=== PATIENT | male | born 1945 | race Two or more races ===

== ENCOUNTER 2018-03-30 15:40 | Inpatient (IN) | payer MEDICARE, MEDICAID ==
[~2018-03-30] VITALS: Ht 170.2 cm; Wt 64.0 kg
--- NOTE | 2018-03-30 15:56 | NUR ---
pt presented with remsa with urinary frequency and urgency x 3 days. pt a&ox4. pt placed in room and placed on bp and cont. pulse oximeter. assessment completed. call light in reach.
[2018-03-30 16:18] LABS: MEAN CORPUSCULAR HEMOGLOBIN 33.3 pg (27.5-34.5); MEAN CORPUSCULAR HGB CONC 34.1 g/dL (33.2-36.2); MEAN CORPUSCULAR VOLUME 97.6 fL (81-97); PLATELET COUNT 165 x10^3/uL (130-400); RED BLOOD COUNT 4.66 x10^6/uL (4.38-5.82); RED CELL DISTRIBUTION WIDTH 13.9 % (9.4-14.8)
[2018-03-30 16:25] LABS: ALBUMIN 3.1 g/dL (3.4-5.0); ANION GAP 8 mmol/L (5-15); CALCIUM 9.2 mg/dL (8.5-10.1); CHLORIDE 101 mmol/L (98-107); CREATININE 3.69 mg/dL (0.7-1.3)
[2018-03-30] MEDS ORDERED: SODIUM CHLORIDE 0.9% 1,000 ML IV ONE ×2 (16:32→19:24)
[2018-03-30 16:36] LABS: MD YES
[2018-03-30 16:39] LABS: BANDS%(MANUAL) 8 % (0-7); LYMPH#(MANUAL) 1.05 x10^3/uL (1-3.4); LYMPHS% (MANUAL) 6 % (22-44); MONOS#(MANUAL) 0.88 x10^3/uL (0.3-2.7); MONOS% (MANUAL) 5 % (2-9); SEG#(MANUAL) 14.18 x10^3/uL (1.8-6.8); SEGS% (MANUAL) 81 % (42-75)
[2018-03-30 16:41] LABS: <PLATELET ESTIMATE> ADEQUATE; <PLT MORPHOLOGY> NORMAL PLT MORPH; PMNS WITH VACUOLES 1+
--- NOTE | 2018-03-30 16:48 | NUR ---
pt bladder scanned and bladder scan 960 mls. denton placed and 1200 mls out. urine sent to lab.
--- NOTE | 2018-03-30 16:58 | NUR ---
ultrasound at bedside.
[2018-03-30] MEDS ORDERED: SODIUM CHLORIDE 0.9% 1,000ML IVBOLUS ONE (17:00)
[2018-03-30] MEDS ORDERED: SODIUM CHLORIDE FLUSH 10ML SYR IVF ONE (17:00)
[2018-03-30 17:20] LABS: CULTURE INDICATED? YES; MICROSCOPIC INDICATED
--- NOTE | 2018-03-30 17:22 | NUR ---
BLOOD NOTICED AT TIP OF PENIS, MD AWARE. BLOOD IN URINE.
--- NOTE | 2018-03-30 18:24 | NUR ---
2 LITERS OF BURGUNDY URINE EMPTIED OUT OF TAMAYO
[2018-03-30] MEDS ORDERED: CEFTRIAXONE PMX 1GM/50ML 50 ML IVPB ONE (18:30)
[2018-03-30] MEDS ORDERED: TAMS-11 PO (18:39)
--- NOTE | 2018-03-30 18:48 | NUR ---
REPORT GIVEN TO RAFITA RO.
[2018-03-30] MEDS ORDERED: CEFTRIAXONE PMX 1GM/50ML 50 ML ONE (18:59)
--- NOTE | 2018-03-30 19:01 | NUR ---
[facility] RO: REPORT OF PT FROM JAYJAY ELLER.
--- NOTE | 2018-03-30 19:03 | NUR ---
BLOOD CULTURES DRAWN X 2 AND ANTIBIOTICS HUNG PER MD ORDER
[2018-03-30] MEDS: SODIUM CHLORIDE 0.9% 1,000 ML IV SCH (19:22)
[2018-03-30] MEDS ORDERED: ONDANSETRON 2MG/ML, 2ML IVPush PRN (19:30)
[2018-03-30] MEDS ORDERED: GUAIFENESIN/COD200MG-20MG/10ML LIQUID PO PRN (19:30)
[2018-03-30] MEDS ORDERED: hydrALAzine 20 MG/ML, 1ML IVPush PRN (19:30)
[2018-03-30] MEDS ORDERED: DOCUSATE 100 MG CAPSULE PO PRN (19:30)
[2018-03-30] MEDS ORDERED: SODIUM CHLORIDE FLUSH 10ML SYR IVF PRN (19:30)
--- NOTE | 2018-03-30 19:31 | NUR ---
PT RESTING IN BED AT THIS TIME. PT INFORMED HOLDING OFF ON FOOD UNTIL ALL TEST ARE COMPLETED. PT REPOSITIONED IN BED. PT REQUESTING SOFT FOODS DUE TO HIS BAD TEETH. PT CONNECTED TO MONITORS AND CALL LIGHT IN REACH. AWAITING FURTHER ORDERS.
--- NOTE | 2018-03-30 20:03 | NUR ---
PT MEDICATED PER EMAR.
--- NOTE | 2018-03-30 20:16 | NUR ---
Discussion with provider regarding high procalcitonin. Provider at this time would like to stay on monotherapy. No other interventions at this time.
[2018-03-31 02:05] VITALS: BP 155/93
[2018-03-31] MEDS: SODIUM CHLORIDE 0.9% 1,000 ML IV SCH (04:41)
[2018-03-31] MEDS: ACETAMINOPHEN 325 MG TABLET PO PRN ×2 (04:51→11:27)
[2018-03-31 05:49] LABS: BASOPHILS % (AUTO) 0 % (0-1); EOSINOPHILS % (AUTO) 0 % (1-7); LYMPHOCYTES # (AUTO) 0.48 x10^3/uL (1-3.4); LYMPHOCYTES % (AUTO) 3 % (22-44); MD NO; MEAN CORPUSCULAR HEMOGLOBIN 33.3 pg (27.5-34.5); MEAN CORPUSCULAR HGB CONC 33.7 g/dL (33.2-36.2); MEAN CORPUSCULAR VOLUME 98.8 fL (81-97); MEAN PLATELET VOLUME 9.3 fL (7.4-10.4); MONOCYTES # (AUTO) 1.02 x10^3/uL (0.2-0.8); MONOCYTES % (AUTO) 7 % (2-9); NEUTROPHILS # (AUTO) 13.49 x10^3/uL (1.8-6.8); NEUTROPHILS % (AUTO) 90 % (42-75); PLATELET COUNT 149 x10^3/uL (130-400); RED BLOOD COUNT 4.48 x10^6/uL (4.38-5.82); RED CELL DISTRIBUTION WIDTH 13.9 % (9.4-14.8)
[2018-03-31 05:58] LABS: ANION GAP 11 mmol/L (5-15); CALCIUM 8.3 mg/dL (8.5-10.1); CHLORIDE 107 mmol/L (98-107)
[2018-03-31 05:59] LABS: CREATININE 2.36 mg/dL (0.7-1.3)
[2018-03-31 08:38] VITALS: BP 126/60
[2018-03-31] MEDS: TAMSULOSIN 0.4 MG CAP.ER.24H PO SCH (08:56)
[2018-03-31] MEDS: PIPERACILLIN/TAZO/PMX 3.375GM 50 ML IV SCH ×2 (10:56→18:32)
[2018-03-31 14:00] VITALS: BP 139/85
[2018-03-31 18:47] VITALS: BP 142/93
[2018-03-31] MEDS ORDERED: CEFTRIAXONE PMX 1GM/50ML 50 ML IV SCH (19:00)
[2018-04-01 01:17] VITALS: BP 131/79
[2018-04-01] MEDS: PIPERACILLIN/TAZO/PMX 3.375GM 50 ML IV SCH ×4 (02:28→23:08)
[2018-04-01 06:56] VITALS: BP 136/82
[2018-04-01] MEDS: HEPARIN 5,000 UNITS/ML, 1ML SQ SCH ×2 (08:05→16:57)
[2018-04-01] MEDS: TAMSULOSIN 0.4 MG CAP.ER.24H PO SCH (08:05)
[2018-04-01 08:07] LABS: BASOPHILS # (AUTO) 0.02 x10^3/uL (0-0.1); BASOPHILS % (AUTO) 0 % (0-1); EOSINOPHILS # (AUTO) 0.08 x10^3/uL (0-0.4); EOSINOPHILS % (AUTO) 1 % (1-7); LYMPHOCYTES # (AUTO) 0.78 x10^3/uL (1-3.4); LYMPHOCYTES % (AUTO) 6 % (22-44); MD NO; MEAN CORPUSCULAR HEMOGLOBIN 32.4 pg (27.5-34.5); MEAN CORPUSCULAR HGB CONC 33.3 g/dL (33.2-36.2); MEAN CORPUSCULAR VOLUME 97.5 fL (81-97); MEAN PLATELET VOLUME 8.8 fL (7.4-10.4); MONOCYTES # (AUTO) 0.82 x10^3/uL (0.2-0.8); MONOCYTES % (AUTO) 7 % (2-9); NEUTROPHILS # (AUTO) 10.74 x10^3/uL (1.8-6.8); NEUTROPHILS % (AUTO) 86 % (42-75); PLATELET COUNT 163 x10^3/uL (130-400); RED BLOOD COUNT 4.43 x10^6/uL (4.38-5.82); RED CELL DISTRIBUTION WIDTH 13.8 % (9.4-14.8)
[2018-04-01 08:20] LABS: ALANINE AMINOTRANSFERASE 37 U/L (12-78); ALBUMIN 2.4 g/dL (3.4-5.0); ANION GAP 11 mmol/L (5-15); CHLORIDE 103 mmol/L (98-107); CREATININE 1.37 mg/dL (0.7-1.3)
[2018-04-01 08:22] LABS: ALKALINE PHOSPHATASE 97 U/L (45-117); BILIRUBIN,TOTAL 1.8 mg/dL (0.2-1.0); TOTAL PROTEIN 7.2 g/dL (6.4-8.2)
[2018-04-01] MEDS: SODIUM CHLORIDE 0.9% 1,000 ML IV SCH (10:36)
[2018-04-01] MEDS ORDERED: PIPERACILLIN/TAZO/PMX 3.375GM 50 ML IV SCH (12:30)
[2018-04-01 13:28] VITALS: BP 120/78
[2018-04-01] MEDS: ACETAMINOPHEN 325 MG TABLET PO PRN (13:41)
[2018-04-01 20:19] VITALS: BP 132/78
[2018-04-02 01:55] VITALS: BP 143/87
[2018-04-02] MEDS: SODIUM CHLORIDE 0.9% 1,000 ML IV SCH ×2 (04:01→15:25)
[2018-04-02] MEDS: PIPERACILLIN/TAZO/PMX 3.375GM 50 ML IV SCH ×4 (04:12→22:09)
[2018-04-02] MEDS: HEPARIN 5,000 UNITS/ML, 1ML SQ SCH ×3 (04:13→22:09)
[2018-04-02 04:57] LABS: BASOPHILS # (AUTO) 0.09 x10^3/uL (0-0.1); BASOPHILS % (AUTO) 1 % (0-1); EOSINOPHILS # (AUTO) 0.16 x10^3/uL (0-0.4); EOSINOPHILS % (AUTO) 2 % (1-7); LYMPHOCYTES # (AUTO) 0.98 x10^3/uL (1-3.4); LYMPHOCYTES % (AUTO) 11 % (22-44); MD NO; MEAN CORPUSCULAR HEMOGLOBIN 32.7 pg (27.5-34.5); MEAN CORPUSCULAR HGB CONC 33.5 g/dL (33.2-36.2); MEAN CORPUSCULAR VOLUME 97.7 fL (81-97); MEAN PLATELET VOLUME 8.8 fL (7.4-10.4); MONOCYTES % (AUTO) 11 % (2-9); NEUTROPHILS # (AUTO) 6.96 x10^3/uL (1.8-6.8); NEUTROPHILS % (AUTO) 76 % (42-75); PLATELET COUNT 163 x10^3/uL (130-400); RED BLOOD COUNT 4.07 x10^6/uL (4.38-5.82); RED CELL DISTRIBUTION WIDTH 13.9 % (9.4-14.8)
[2018-04-02 05:08] LABS: ALBUMIN 2.2 g/dL (3.4-5.0); ANION GAP 7 mmol/L (5-15); CALCIUM 7.4 mg/dL (8.5-10.1); CHLORIDE 105 mmol/L (98-107)
[2018-04-02 05:13] LABS: ALANINE AMINOTRANSFERASE 32 U/L (12-78); ALKALINE PHOSPHATASE 107 U/L (45-117); BILIRUBIN,TOTAL 1.3 mg/dL (0.2-1.0); CREATININE 1.34 mg/dL (0.7-1.3); TOTAL PROTEIN 6.6 g/dL (6.4-8.2)
[2018-04-02] MEDS: TAMSULOSIN 0.4 MG CAP.ER.24H PO SCH (08:38)
[2018-04-02 13:27] VITALS: BP 130/73
[2018-04-02 20:30] VITALS: BP 155/92
[2018-04-03] MEDS: SODIUM CHLORIDE 0.9% 1,000 ML IV SCH ×3 (00:22→21:47)
[2018-04-03 02:27] VITALS: BP 152/67
[2018-04-03] MEDS: PIPERACILLIN/TAZO/PMX 3.375GM 50 ML IV SCH ×4 (04:19→21:47)
[2018-04-03 05:55] LABS: CHLORIDE 105 mmol/L (98-107)
[2018-04-03 06:02] LABS: ALANINE AMINOTRANSFERASE 30 U/L (12-78); ALBUMIN 2.2 g/dL (3.4-5.0); ALKALINE PHOSPHATASE 92 U/L (45-117); ANION GAP 10 mmol/L (5-15); BILIRUBIN,TOTAL 1.1 mg/dL (0.2-1.0); CALCIUM 7.6 mg/dL (8.5-10.1); CREATININE 1.07 mg/dL (0.7-1.3); TOTAL PROTEIN 6.8 g/dL (6.4-8.2)
[2018-04-03] MEDS: HEPARIN 5,000 UNITS/ML, 1ML SQ SCH ×2 (06:21→17:14)
[2018-04-03 07:00] VITALS: BP 156/85
[2018-04-03] MEDS: TAMSULOSIN 0.4 MG CAP.ER.24H PO SCH (08:33)
[2018-04-03 13:27] VITALS: BP 138/80
[2018-04-03] MEDS ORDERED: HALOPERIDOL 5 MG/ML ONE (18:13)
[2018-04-03] MEDS ORDERED: HALOPERIDOL 5 MG/ML IV ONE (18:30)
[2018-04-03 21:38] VITALS: BP 146/85
[2018-04-04] MEDS: HEPARIN 5,000 UNITS/ML, 1ML SQ SCH ×3 (01:32→16:35)
[2018-04-04 01:48] VITALS: BP 120/73
[2018-04-04] MEDS: PIPERACILLIN/TAZO/PMX 3.375GM 50 ML IV SCH ×3 (03:59→16:35)
[2018-04-04 07:49] VITALS: BP 104/69
[2018-04-04] MEDS: TAMSULOSIN 0.4 MG CAP.ER.24H PO SCH (09:20)
[2018-04-04] MEDS ORDERED: LEVO500T47 PO (11:05)
[2018-04-04] MEDS ORDERED: LEVOFLOXACIN 750 MG TABLET PO SCH (11:30)
[2018-04-04 13:47] VITALS: BP 125/76
== END 2018-04-04 17:47 | disposition home or self-care (01) | DRG 872 ==
LOC: ED 17:37 → EDIP 19:22 → 4NOR 22:25
PROVIDERS: ADMIT Internal Medicine; ATTEND Internal Medicine
DX: A41.9 Sepsis, unspecified organism (principal); E44.1 Mild protein-calorie malnutrition; N17.9 Acute kidney failure, unspecified; E87.1 Hypo-osmolality and hyponatremia; N10 Acute pyelonephritis; N13.8 Other obstructive and reflux uropathy; R33.8 Other retention of urine; B96.1 Klebsiella pneumoniae [K. pneumoniae] as the cause of diseases classified elsewhere; B96.89 Other specified bacterial agents as the cause of diseases classified elsewhere; I10 Essential (primary) hypertension; Z90.49 Acquired absence of other specified parts of digestive tract; N40.1 Benign prostatic hyperplasia with lower urinary tract symptoms; Z98.42 Cataract extraction status, left eye; Z98.41 Cataract extraction status, right eye; Z88.8 Allergy status to other drugs, medicaments and biological substances; Z68.22 Body mass index [BMI] 22.0-22.9, adult
CPT/HCPCS: 36415; 76770; 80048; 80053; 81001; 82040; 83605; 83735; 84100; 84145; 85025; 87040; 87077; 87086; 87186; 93005; 96361; 96374; 99285; G0378; J0696; J1644; J2543; J1630; J7030